=== PATIENT | female | born 1980 | race Caucasian/White ===

== ENCOUNTER → 2019-10-27 | Emergency (ER) | payer OTHER ==
[~2019-10-27] VITALS: Ht 167.6 cm; Wt 92.5 kg
[~2019-10-27] MED LIST: OMEPRAZOLE20 MG PO; PRENATAL VITAM1 EACH PO
--- OUTSIDE RECORDS SUMMARY | ~2019-10-27 | XMS | Encounter Summary ---
Demographics + + + | Address | [address] | | | [place] [address] | + + + | Home Phone | | + + + | Preferred Language | Unknown | + + + | Marital Status | Single | + + + | Hinduism Affiliation | Unknown | + + + | Race | Unknown | + + + | Ethnic Group | Other Race | + + + Author + + + | Author | [facility] | + + + | Organization | [facility] | + + + | Address | Unknown | + + + | Phone | Unavailable | + + + Care Team Providers + +------+ + | Care Extrusion Die Repair Manager Name | Role | Phone | + +------+ + PCP | Unavailable | + +------+ + Encounter Details +--------+ + + + + | Date | Type | Department | Care Team | Description | +--------+ + + + + | 09/13/ | Results | [facility] | [facility], | | | 2009 | Only | Department | [facility] | | | | | | Clinic Dermatology | | | | | | [address] | | | | | | [place], [place] | | | | | | [address] | | | | | | | | +--------+ + + + + Social History + +-------+ +--------+------+ | Tobacco Use | Types | Packs/Day | Years | Date | | | | | Used | | + +-------+ +--------+------+ | Never Assessed | | | | | + +-------+ +--------+------+ + + + | Sex Assigned at | Date Recorded | | | | + + + | Not on file | | + + + + + + + | Job Start Date | Occupation | Industry | + + + + | Not on file | Not on file | Not on file | + + + + + + + + | Travel History | Travel Start | Travel End | + + + + + + | No recent travel history available. | + + documented as of this encounter Plan of Treatment Not on filedocumented as of this encounter Procedures + +--------+ + + + | Procedure Name | Priori | Date/Time | Associated Diagnosis | Comments | | | ty | | | | + +--------+ + + + | DERMATOPATHOLOGY(WET | Routin | 09/13/2010 | | Results for this | | [facility]) | e | | | procedure are in the | | | | | | results section. | + +--------+ + + + documented in this encounter Results DERMATOPATHOLOGY(WET [facility]) (09/13/2010) + + + + + + | Component | Value | Ref Range | Performed | Pathologist | | | | | At | Signature | + + + + + + | DERMATOPATH | SOURCE OF SPECIMEN:A | | [facility] | | | OLOGY(WET | FIRST TISSUE LEVEL IV | | DERMATOPATH | | | MNT) | [address] CLINICAL | | OLOGY | | | | DESCRIPTION:Excision, | | | | | | rt. lateral upper arm; | | | | | | bx. scar; bx. proven | | | | | | MIS. GROSS | | | | | | DESCRIPTION:Rt. lateral | | | | | | upper arm. The | | | | | | specimen is received in | | | | | | formalin, labeled | | | | | | rt.lateral upper arm, | | | | | | with the patient's name | | | | | | and consists of a rinaldi | | | | | | skinellipse, measuring | | | | | | 6.0 x 1.8 x 1.4 cm. | | | | | | There is a suture at | | | | | | one tip, noapparent | | | | | | designation. Placing | | | | | | the suture at 12:00, the | | | | | | specimen is inkedblack | | | | | | from 12:00-6:00 and blue | | | | | | from 6:00-12:00. The | | | | | | specimen is | | | | | | sectionedinto 24 | | | | | | segments and entirely | | | | | | submitted in 14 | | | | | | cassettes, starting | | | | | | with12:00 in cassette 1. | | | | | | MICROSCOPIC | | | | | | DESCRIPTION:In the right | | | | | | lateral upper arm | | | | | | excision specimen there | | | | | | is an increasednumber of | | | | | | collagen bundles | | | | | | associated with | | | | | | fibroblasts arranged | | | | | | parallel tothe skin | | | | | | surface with vertically | | | | | | oriented blood vessels. | | | | | | DIAGNOSIS:SCAR. | | | | | | NOTE: There is no | | | | | | evidence of residual | | | | | | melanoma in situ in the | | | | | | rightlateral upper arm | | | | | | excision. | | | | | | Immunohistochemical | | | | | | staining with Melan-A | | | | | | isperformed on block A10 | | | | | | with no evidence of | | | | | | residual melanoma. | | | | | | VBK/DARIUSW:dlb09/19/10 | | | | | | Case review | | | | | | by:Gavi Centeno, | | | | | | M.DSb / Dermatopathology | | | | | | FellowJohnny Salinas | | | | | | Hussein Varela / | | | | | | Dermatopathologist | | | | | | My electronic signature | | | | | | indicates that I have | | | | | | personally reviewed | | | | | | alldiagnostic slides, | | | | | | the gross and/or | | | | | | microscopic portion of | | | | | | thisreport and | | | | | | formulated the final | | | | | | diagnosis. | | | | | | Rendering Diagnostician: | | | | | | Johnny Salinas Jr., | | | | | | | | | | | | HusseinPathologistElectroni | | | | | | jermaine Signed 09/20/2010 | | | | + + + + + + + + | Specimen | + + | | + + + + + + + | Performing | Address | City/State/Zipcode | Phone Number | | Organization | | | | + + + + + | [facility] | [address] | [place] [address] | | | DERMATOPATHOLOGY | [address] | | | + + + + + documented in this encounter Visit Diagnoses Not on filedocumented in this encounter"
--- OUTSIDE RECORDS SUMMARY | ~2019-10-27 | XMS | Encounter Summary ---
Demographics + + + | Address | [address] | | | [place] [address] | + + + | Home Phone | | + + + | Preferred Language | Unknown | + + + | Marital Status | Single | + + + | Amish Affiliation | Unknown | + + + | Race | Unknown | + + + | Ethnic Group | Other Race | + + + Author + + + | Author | [facility] | + + + | Organization | [facility] | + + + | Address | Unknown | + + + | Phone | Unavailable | + + + Care Team Providers + +------+ + | Care Garnett Machine Operator Name | Role | Phone | + +------+ + | Xavier Baron DO | PCP | | + +------+ + Reason for Visit + + + | Reason | Comments | + + + | Follow-up visit | | + + + Intake Referral (Routine) +--------+--------+ + + + + | Status | Reason | Specialty | Diagnoses / | Referred By | Referred To | | | | | Procedures | Contact | Contact | +--------+--------+ + + + + | Closed | | Ophthalmology | Diagnoses | [facility] | [facility] | | | | | Exotropia | [place], | [facility] | | | | | Astigmatism | Jackie Agosto, | [address] | | | | | | OD VISION | Mailcode: | | | | | | SOURCE | [facility] | | | | | | [place] | [place], [place] | | | | | | [address] | [address] Phone: | | | | | | [address] | [phone] | | | | | | [place], | Fax: | | | | | | [place] [address] | [phone] | | | | | | Phone: | | | | | | | [phone] | | | | | | | Fax: | | | | | | | [phone] | | +--------+--------+ + + + + Encounter Details +--------+---------+ + + + | Date | Type | Department | Care Team | Description | +--------+---------+ + + + | 04/25/ | Office | [facility] | Carrie Chun, | Consecutive | | 2018 | Visit | [facility] [address] | [address] | alternating | | | | [address] Mailcode: | [address] | exotropia (Primary | | | | [facility] [place], [place] | [place], [place] | Dx) | | | | [address] | [address] | | | | | | [phone] | | | | | | | | +--------+---------+ + + + Social History + +-------+ [...] + + documented as of this encounter Progress Notes Carrie Chun MD - 04/25/2018 10:00 AM PDTFormatting of this note might be different fro m the original. COMPREHENSIVE OPHTHALMOLOGY EXAM: PCP: Xavier Baron DO Referring: Jackie Mcintosh REASON FOR VISIT: Follow-up visit Strab Evaluation HISTORY OF PRESENT PROBLEM: Whitney Bragg is a 37 y.o. female from [facility]. Congential esotropia; 1st Sx was 6-[address] Hyman did first 3 Sx. Last Sx-can't r emember 's name. Subsequent Sx was for drifting. Eyes were ortho after last Sx, but then started drifting again--this was around 17yo, eye started drifting again by 20yo. She notices eye drifting all the time. No double vision. Interested in discussing options--no pain or discomfort, would like cosmetic benefits. PAIN: No pain (0 of 0-10) PAST OCULAR HISTORY: congential esotropia; 1st Sx was 6-[address] Hyman did first 3 Sx. L ast Sx-can't remember dr's name. Subsequent Sx was for drifting. Eyes were ortho after las t Sx, but then started drifting again. PAST MEDICAL HISTORY: full term FAMILY HISTORY OF EYE DISEASE: noncontributory Specialty Comments: No specialty comments on file. Mental Status: Alert, age-appropriate behavior Base Exam Visual Acuity (Snellen - Linear) Right Left Dist cc 20/20 -2 20/20 Correction: Glasses Wearing Rx Sphere Cylinder [place] Right -2.00 +3.75 114 Left -1.75 +3.00 090 Pupils Pupils Right PERRL Left PERRL Fairly constrictted, but equally reactive Neuro/Psych Oriented x3: Yes Mood/Affect: Normal Additional Tests Stereo Fly: - Strabismus Exam Method: alternate cover Correction: cc RXT 25 DVD OU sm 0 0 ++ RXT 20-25 0 0 0 XT 14 0 -2 RXT 20-25 0 0 XT 40-45 RHT sm DVD OU RHT 8 0 0 ++ RXT 30 0 0 0 LHT sm XT 20-25 XT 25 AHP: Yes: small left face turn Small DVD R>L Slit Lamp and Fundus Exam External Exam Right Left External Normal Normal Slit Lamp Exam Right Left Lids/Lashes Normal Normal Conjunctiva/Sclera White and quiet White and quiet Cornea All layers clear All layers clear Anterior Chamber Deep and quiet Deep and quiet Iris Normal Normal Lens Clear Clear Vitreous Normal Normal Kenyteta Murcia, performed, reviewed or revised the above history, medications, allergies, as well as performed elements noted in the Base Ophthalmology Exam, such as visual acuity, pupils, EOMs, CVF and IOP and this was reviewed and modified by the attending physician. Sensorimotor Exam Interpretation: RXT Assessment Right exotropia worse in left gaze with limited adduction of the right eye DVD - small H/o congential esotropia; 1st Sx was 6-[address] Hyman did first 3 Sx. Last Sx-can't r emember dr's name. Subsequent Sx was for drifting. Eyes were ortho after last Sx, but then started drifting again. Plan Recommend strabismus surgery. Right R&R (MR likely needs to be advanced), but both eyes given history of 3 previous surgeries. Discussed with patient the risks and benefits of surgery including infection, bleeding, los s of vision, diplopia, and need for additional surgery. 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
--- OUTSIDE RECORDS SUMMARY | ~2019-10-27 | XMS | Encounter Summary ---
Demographics + + + | Address | [address] | | | [place] [address] | + + + | Home Phone | | + + + | Preferred Language | Unknown | + + + | Marital Status | Single | + + + | Restorationism Affiliation | Unknown | + + + | Race | Unknown | + + + | Ethnic Group | Other Race | + + + Author + + + | Author | [facility] | + + + | Organization | [facility] | + + + | Address | Unknown | + + + | Phone | Unavailable | + + + Care Team Providers + +------+ + | Care Manager Database Administration Name | Role | Phone | + +------+ + | Xavier Baron DO | PCP | | + +------+ + Reason for Visit + + + | Reason | Comments | + + + | Strabismus | | + + + Encounter Details +--------+---------+ + + + | Date | Type | Department | Care Team | Description | +--------+---------+ + + + | 04/25/ | Office | [facility] | [facility] [place] | Alternating | | 2018 | Visit | [facility] | [address] | exotropia (Primary | | | | at [facility] | [address] [place], | Dx) | | | | [address] | [place] [address] | | | | | Mailcode: MAGED | | | | | | [place] [address] | | | | | | [phone] | | | +--------+---------+ + + + [...] documented as of this encounter Progress Notes Bob Ashley CO - 04/25/2018 10:00 AM PDTFormatting of this note might be different from t he original. SENSORIMOTOR EXAMINATION: Base Exam Visual Acuity (Snellen - Linear) Right Left Dist cc 20/20 -2 20/20 Correction: Glasses Wearing Rx Sphere Cylinder [place] Right -2.00 +3.75 114 Left -1.75 +3.00 [...] small left face turn Small DVD R>L Kenyetta Murcia, performed, reviewed or revised the above history, medications, allergies, as well as performed elements noted in the Base Ophthalmology Exam, such as visual acuity, pupils, EOMs, CVF and IOP and this was reviewed and modified by the attending physician. Assessment 1. Exotropia-- s/p several strabismus surgeries; has increase in left gaze from adduction d eficit; interested in more surgery Plan 1. Test results and measurements forwarded to Dr. Chun for management of care. ARYA Mcintyre documented in this encou nter Plan of Treatment Not on filedocumented as of this encounter Visit Diagnoses + + | Diagnosis | + + | Alternating exotropia - Primary | + + documented in this encounter"
--- OUTSIDE RECORDS SUMMARY | ~2019-10-27 | XMS | Clinical Summary ---
Demographics + + + | Address | [address] | | | [place] [address] | + + + | Home Phone | | + + + | Preferred Language | Unknown | + + + | Marital Status | Single | + + + | Uatsdin Affiliation | Unknown | + + + | Race | Unknown | + + + | Ethnic Group | Other Race | + + + Author + + + | Author | [facility] | + + + | Organization | [facility] | + + + | Address | Unknown | + + + | Phone | Unavailable | + + + Care Team Providers + +------+ + | Care Helper Animal Laboratory Name | Role | Phone | + +------+ + | Xavier Baron DO | PCP | | + +------+ + Source Comments [facility] Allergies Not on File Medications No known medications Active Problems No known active problems Social History + +-------+ +--------+------+ | Tobacco [...] recent travel history available. | + + Last Filed Vital Signs Not on file Plan of Treatment + + + + + | Health Maintenance | Due Date | Last Done | Comments | + + + + + | Influenza (Flu) | | | | | vaccination (#1) | 9 | | | + + + + + | Pneumococcal | Aged Out | | No longer eligible | | vaccination | | | based on patient's | | | | | age to complete this | | | | | topic | + + + + + Results Not on filefrom Last 3 Months Insurance + +--------+ +--------+ + +------+ | Payer | Benefi | Subscriber | Effect | Phone | Address | Type | | | t Plan | ID | [place] | | | | | | / | | Dates | | | | | | Group | | | | | | + +--------+ +--------+ + +------+ | [employer] | MODA | [phone] | | [phone] | [address] | PPO | | | [employer] | | [id number] | [phone] | | | | [place] | | esent | | [place], | | | | [place] | | | | [place] [address] | | + +--------+ +--------+ + +------+ + +--------+ +--------+ + + | Guarantor Name | Accoun | Relation to | Date | Phone | Billing Address | | | t Type | Patient | of | | | | | | | | | | + +--------+ +--------+ + + | Whitney Bragg | Person | Self [birth year] | [address] | | | al/Fam | | 1980 | [phone] | [place] [address] | | | joaquin | | | 3 (Home) | | + +--------+ +--------+ + +"
--- OUTSIDE RECORDS SUMMARY | ~2019-10-27 | XMS | Encounter Summary ---
Demographics + + + | Address | [address] | | | [place] [address] | + + + | Home Phone | | + + + | Preferred Language | Unknown | + + + | Marital Status | Single | + + + | Bahai Affiliation | Unknown | + + + | Race | Unknown | + + + | Ethnic Group | Other Race | + + + Author + + + | Author | [facility] | + + + | Organization | [facility] | + + + | Address | Unknown | + + + | Phone | Unavailable | + + + Care Team Providers + +------+ + | Care Renovation Plant Supervisor Name | Role | Phone | + +------+ + PCP | Unavailable | + +------+ + Encounter Details +--------+ + + + + | Date | Type | Department | Care Team | Description | +--------+ + + + + | 08/07/ | Results | [facility] | [facility], | | | 2009 | Only | Department | [facility] | | | | | | Clinic Dermatology | | | | | | [address] | | | | | | [place], [place] | | | | | | [address] | | | | | | | [...] + + | DERMATOPATHOLOGY(WET | Routin | 08/07/2010 | | Results for this | | [facility]) | e | | | procedure are in the | | | | | | results section. | + +--------+ + + + documented in this encounter Results DERMATOPATHOLOGY(WET [facility]) (08/07/2010) + + + + + + | Component | Value | Ref Range | Performed | Pathologist | | | | | At | Signature | + + + + + + | DERMATOPATH | SOURCE OF SPECIMEN:A | | [facility] | | | OLOGY(WET | FIRST TISSUE LEVEL IV | | DERMATOPATH | | | MNT) | [address] CLINICAL | | OLOGY | | | | DESCRIPTION:Shave, rt. | | | | | | lateral upper arm; 8 x 7 | | | | | | mm variegated brown | | | | | | papule; R/O nevusvs | | | | | | other neoplasm. | | | | | | GROSS DESCRIPTION:Rt. | | | | | | lateral upper arm. The | | | | | | specimen is received in | | | | | | formalin, labeled | | | | | | rt.lateral upper arm, | | | | | | with the patient's name | | | | | | and consists of a rinaldi | | | | | | and brownshave biopsy | | | | | | measuring 1.1 x 0.8 cm. | | | | | | The specimen is | | | | | | sectioned into | | | | | | foursegments and | | | | | | entirely submitted in | | | | | | one cassette. | | | | | | MICROSCOPIC | | | | | | DESCRIPTION:There is a | | | | | | moderately broad | | | | | | asymmetric and poorly | | | | | | circumscribed | | | | | | melanocyticneoplasm. | | | | | | Primarily single | | | | | | melanocytes as well as | | | | | | nests of varying size | | | | | | andshape, some of them | | | | | | confluent, are present | | | | | | at all levels of the | | | | | | epidermisand extending | | | | | | down adnexae. The | | | | | | melanocytic nuclei are | | | | | | moderately large | | | | | | andhyperchromatic, and | | | | | | the cells have abundant | | | | | | amphophilic | | | | | | cytoplasmcontaining | | | | | | little melanin. | | | | | | DIAGNOSIS:MELANOMA IN | | | | | | SITU, LATERAL UPPER | | | | | | RIGHT ARM. NOTE: | | | | | | The right arm melanoma | | | | | | appears to be confined | | | | | | to the epidermis | | | | | | (insitu) in these | | | | | | sections where it | | | | | | extends to the epidermal | | | | | | surgical | | | | | | margins.Additional | | | | | | treatment to insure | | | | | | complete removal of the | | | | | | melanoma would | | | | | | beprudent. | | | | | | CRW:dlb08/11/10 My | | | | | | electronic signature | | | | | [...] | | | | | | | MJanaePathologistElectroni | | | | | | jermaine Signed 08/11/2010 | | | | + + + + + + + + | Specimen | + + | | + + + + + + + | Performing | Address | City/State/Zipcode | Phone Number | | Organization | | | | + + + + + | [facility] | [address] | [place] [address] | | | DERMATOPATHOLOGY | [address] | | | + + + + + documented in this encounter Visit Diagnoses Not on filedocumented in this encounter"
--- OUTSIDE RECORDS SUMMARY | ~2019-10-27 | XMS | Encounter Summary ---
Demographics + + + | Address | [address] | | | [place] [address] | + + + | Home Phone | | + + + | Preferred Language | Unknown | + + + | Marital Status | Single | + + + | Restoration Affiliation | Unknown | + + + | Race | Unknown | + + + | Ethnic Group | Other Race | + + + Author + + + | Author | [facility] | + + + | Organization | [facility] | + + + | Address | Unknown | + + + | Phone | Unavailable | + + + Care Team Providers + +------+ + | Care Broadcast Field Supervisor Name | Role | Phone | [...] [address] | | | | | | [place], [place] | | | | | | [address] | | | | | | | [...] | DERMATOPATH | | | MNT) | [address] CLINICAL | | OLOGY | | | [...] [facility] | [address] | [place] [address] | | | DERMATOPATHOLOGY | [address] | | | + + + + + documented in this encounter Visit Diagnoses Not on filedocumented in this encounter"
--- OUTSIDE RECORDS SUMMARY | ~2019-10-27 | XMS | Encounter Summary ---
Demographics + + + | Address | [address] | | | [place] [address] | + + + | Home Phone | | + + + | Preferred Language | Unknown | + + + | Marital Status | Single | + + + | Episcopalian Affiliation | Unknown | + + + | Race | Unknown | + + + | Ethnic Group | Other Race | + + + Author + + + | Author | [facility] | + + + | Organization | [facility] | + + + | Address | Unknown | + + + | Phone | Unavailable | + + + Care Team Providers + +------+ + | Care Plate Finisher Name | Role | Phone | + +------+ + PCP | Unavailable | + +------+ + Encounter Details +--------+ + + + + | Date | Type | Department | Care Team | Description | +--------+ + + + + | 06/17/ | Hospital | Dermatopathology | | | | 2011 | Encounter | [address] | | | | | | Mailcode: [id number] | | | | | | [facility] | | | | | | and Healing, | | | | | | Building [address], [address]th | | | | | | Floor [place], [place] | | | | | | [address] | | | | | | [phone] | | | +--------+ + + + [...] + + | DERMATOPATHOLOGY(WET | Routin | 06/17/2012 | | Results for this | | [facility]OUNT) | e | | | procedure are in the | | | | | | results section. | + +--------+ + + + documented in this encounter Results DERMATOPATHOLOGY(WET [facility]) (06/17/2012) + + + + + + | Component | Value | Ref Range | Performed | Pathologist | | | | | At | Signature | + + + + + + | DERMATOPATH | SOURCE OF SPECIMEN:A Lt. | | [facility] | | | OLOGY(WET | upper back, shave | | DERMATOPATH | | | MNT) | biopsySOURCE OF | | OLOGY | | | | SPECIMEN:B Rt. medial | | | | | | abdomen, shave biopsy | | | | | | CLINICAL | | | | | | DESCRIPTION:A: 4x6.5 mm | | | | | | brown variegated | | | | | | asymmetrical macule; r/o | | | | | | atypical nevus.B: 9.5x5 | | | | | | mm variegated brown | | | | | | asymmetrical macule; r/o | | | | | | atypical nevus. | | | | | | GROSS | | | | | | DESCRIPTION:Received in | | | | | | formalin are two | | | | | | specimens labeled Bragg, | | | | | | Whitney:A: Specimen | | | | | | is labeled "A: L upper | | | | | | back" and consists of an | | | | | | irregular shaveof | | | | | | white-brown skin, | | | | | | [id number]. The surgical | | | | | | margin is inked green; | | | | | | thetissue is | | | | | | quadrisected, and | | | | | | entirely submitted in | | | | | | cassette A1.B: Specimen | | | | | | is labeled "B: Rt medial | | | | | | abdomen" and consists | | | | | | of an irregularshave of | | | | | | white-brown skin, | | | | | | [id number]. The surgical | | | | | | margin is inked | | | | | | green;the tissue is | | | | | | quadrisected, and | | | | | | entirely submitted in | | | | | | cassette B1. | | | | | | MICROSCOPIC | | | | | | DESCRIPTION:In the left | | | | | | upper back biopsy there | | | | | | is a small to moderately | | | | | | broad,symmetrical and | | | | | | well circumscribed | | | | | | melanocytic neoplasm | | | | | | characterized bysmall | | | | | | nests and single | | | | | | melanocytes along the | | | | | | basal layer of | | | | | | hyperplasticand | | | | | | hyperpigmented rete | | | | | | ridges. The melanin | | | | | | pigment extends | | | | | | throughout theepidermis, | | | | | | including the stratum | | | | | | corneum. There are | | | | | | round to oval nests | | | | | | ofsimilar appearing | | | | | | melanocytes in the | | | | | | thickened, fibrotic, and | | | | | | inflamedpapillary | | | | | | dermis. In the | | | | | | right medial abdomen | | | | | | biopsy there is a mostly | | | | | | well | | | | | | circumscribedcompound | | | | | | melanocytic neoplasm | | | | | | characterized by round | | | | | | to oval nests andsingle | | | | | | melanocytes along the | | | | | | basal layer, with | | | | | | occasional nests and | | | | | | cordspresent in the | | | | | | papillary dermis. Most | | | | | | of the melanocytic | | | | | | nuclei are roundto oval | | | | | | and the cells contain | | | | | | amphophilic cytoplasm. | | | | | | DIAGNOSIS:A: | | | | | | MELANOCYTIC NEVUS, | | | | | | COMPOUND TYPE. | | | | | | NOTE: The left upper | | | | | | back nevus is narrowly | | | | | | excised in the shave | | | | | | specimenin these | | | | | | sections. B: | | | | | | MELANOCYTIC NEVUS, | | | | | | COMPOUND TYPE. | | | | | | NOTE: The right medial | | | | | | abdomen nevus is | | | | | | narrowly excised in the | | | | | | shavespecimen in these | | | | | | sections. | | | | | | CRW:emr06/20/12 My | | | | | | [...] | | | | | | | MJanaePathologistOtiliai | | | | | | jermaine Signed 06/20/2012 | | | | | | 4:24PM | | | | + + + + + + + + | Specimen | + + | | + + + + + + + | Performing | Address | City/State/Zipcode | Phone Number | | Organization | | | | + + + + + | [facility] | Mailcode CH5D, [address] | [place] [address] | | | DERMATOPATHOLOGY | [address] | | | + + + + + documented in this encounter Visit Diagnoses Not on filedocumented in this encounter
--- OUTSIDE RECORDS SUMMARY | ~2019-10-27 | XMS | Clinical Summary ---
Demographics + + + | Address | [address] | | | [place] [address] | + + + | Home Phone | | + + + | Preferred Language | Unknown | + + + | Marital Status | Single | + + + | Church Affiliation | Unknown | + + + | Race | Unknown | + + + | Ethnic Group | Other Race | + + + Author + + + | Author | [facility] | + + + | Organization | [facility] | + + + | Address | Unknown | + + + | Phone | Unavailable | + + + Care Team Providers + +------+ + | Care Miller Head Name | Role | Phone | + +------+ + | Xavier Baron DO | PCP | | + +------+ + Source Comments [facility] Allergies Not [...] OEBB | | [address] | [address] | | | | [address] | | esent | | [place], | | | | [place] | | | | [place] [address] | | + +--------+ +--------+ + +------+ + +--------+ +--------+ + + | Guarantor Name | Accoun | Relation to | Date | Phone | Billing Address | | | t Type | Patient | of | | | | | | | | | | + +--------+ +--------+ + + | Whitney Bragg | Person | Self | [birth year] | [address] | | | al/Fam | | 1980 | [phone] | [place] [address] | | | joaquin | | | 3 (Home) | | + +--------+ +--------+ + +"
--- OUTSIDE RECORDS SUMMARY | ~2019-10-27 | XMS | Encounter Summary ---
Demographics + + + | Address | [address] | | | [place] [address] | + + + | Home Phone | | + + + | Preferred Language | Unknown | + + + | Marital Status | Single | + + + | Quaker Affiliation | Unknown | + + + | Race | Unknown | + + + | Ethnic Group | Other Race | + + + Author + + + | Author | [facility] | + + + | Organization | 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
--- OUTSIDE RECORDS SUMMARY | ~2019-10-27 | XMS | Encounter Summary ---
Demographics + + + | Address | [address] | | | [place] [address] | + + + | Home Phone | | + + + | Preferred Language | Unknown | + + + | Marital Status | Single | + + + | Pentecostal Affiliation | Unknown | + + + | Race | Unknown | + + + | Ethnic Group | Other Race | + + + Author + + + | Author | [facility] | + + + | Organization | [facility] | + + + | Address | Unknown | + + + | Phone | Unavailable | + + + Care Team Providers + +------+ + | Care Mechanical Maintenance Technician Name | Role | Phone | + [...] | Astigmatism | Jackie Agosto, | [address] | | | | | | [place] [facility] | Mailcode: | | | | | | SOURCE | [facility] | | | | | | [place] | [place], [place] | | | | | | [address] | [address] Phone: | | | | | | [address] | [phone] | | | | | | [place], | Fax: | | | | | | [place] [address] | [phone] | | | | | | Phone: | | | | | | | [phone] | | | | | | | Fax: | | | | | | | [phone] | | +--------+--------+ + + + + Encounter Details +--------+---------+ + + + | Date | Type | Department | Care Team | Description | +--------+---------+ + + + | 04/25/ | Office | [facility] | Carrie Chun, | Consecutive | | 2018 | Visit | [facility] [address] | alternating | | | | [address] Mailcode: | [address] | exotropia (Primary | | | | [facility] [place], [place] | [place], [place] | Dx) | | | | [address] | [address] | | | | | | [phone] | | | | | | | [...] Bragg is a 37 y.o. female from [facility]. Congential esotropia; 1st Sx was 6-9m old. [...] 20/20 Correction: Glasses Wearing Rx Sphere Cylinder [place] Right -2.00 +3.75 114 Left -1.75 +3.00 [...] Normal Lens Clear Clear Vitreous Normal Normal Kenyetta Murcia, performed, reviewed or revised the [...] I have reviewed and edited history and laundry technician/field sales manager/scribe documentation, and perf ormed all other elements to above examination and documentation. Carrie Chun MD documented in this en counter Plan of Treatment Not on filedocumented as of this encounter Procedures + +--------+ + + + | Procedure Name | Priori | Date/Time | Associated Diagnosis | Comments | | | ty | | | | + +--------+ + + + | FL SPECIAL EYE | Routin | 05/06/2018 | [...]
--- OUTSIDE RECORDS SUMMARY | ~2019-10-27 | XMS | Encounter Summary ---
Demographics + + + | Address | [address] | | | [place] [address] | + + + | Home Phone | | + + + | Preferred Language | Unknown | + + + | Marital Status | Single | + + + | Samaritan Affiliation | Unknown | + + + | Race | Unknown | + + + | Ethnic Group | Other Race | + + + Author + + + | Author | [facility] | + + + | Organization | [facility] | + + + | Address | Unknown | + + + | Phone | Unavailable | + + + Care Team Providers + +------+ + | Care Fisheries Director Name | Role | Phone | + +------+ + PCP | Unavailable | + +------+ + Encounter Details +--------+ + + + + | Date | Type | Department | Care Team | Description | +--------+ + + + + | 09/13/ | Results | [facility] | [place], | | | 2009 | Only | Department | [facility] | | | | | | Clinic Dermatology | | | | | | [address] | | | | | | [place], [place] | | | | | | [address] | | | | | | | [...] | DERMATOPATH | | | MNT) | [address] CLINICAL | | OLOGY | | | [...] + + | [facility] | [address], [address] | [place] [address] | | | DERMATOPATHOLOGY | [address] | | | + + + + + documented in this encounter Visit Diagnoses Not on filedocumented in this encounter"
--- OUTSIDE RECORDS SUMMARY | ~2019-10-27 | XMS | Encounter Summary ---
Demographics + + + | Address | [address] | | | [place] [address] | + + + | Home Phone | | + + + | Preferred Language | Unknown | + + + | Marital Status | Single | + + + | Sikh Affiliation | Unknown | + + + | Race | Unknown | + + + | Ethnic Group | Other Race | + + + Author + + + | Author | [facility] | + + + | Organization | [facility] | + + + | Address | Unknown | + + + | Phone | Unavailable | + + + Care Team Providers + +------+ + | Care Employee Development Specialist Name | Role | Phone | + [...] [address] | | | | | | [facility] | | | | | | and Healing, | | | | | | Building [address], [address]th | | | | | | Floor [place], [place] | | | | | | [address] | | | | | | [phone] | | | +--------+ + + + [...] skin, | | | | | | [id number]. The surgical | | | | | [...] skin, | | | | | | [id number]. The surgical | | | | | [...] [facility] | Mailcode CH5D, [address] | [place] [address] | | | DERMATOPATHOLOGY | [address] | | | + + + + + documented in this encounter Visit Diagnoses Not on filedocumented in this encounter
--- NOTE | 2019-10-27 12:52 | EKG ---
[facility] [address] [facility] [place] [address] Signed Normal sinus rhythm Normal ECG No previous ECGs available Confirmed by LULY NIEVES MD ([id number]) on 10/27/2019 12:52:24 PM Electronically Signed By: LULY NIEVES MD 10/27/19 1252 PATIENT NAME: KAYDEN MOONEY Electrocardiogram DATE OF : 82 PHYSICIAN: LULY NIEVES MD REPORT #: [id number] REPORT IS CONFIDENTIAL AND NOT TO BE RELEASED WITHOUT AUTHORIZATION
== END ==
LOC: ED 01:32
DX: K30 Functional dyspepsia (principal)
CPT/HCPCS: 71045; 76705; 80053; 83690; 84484; 85025; 93005; 93010; 99285-25; J2405